=== PATIENT | male | born 1960 | race Caucasian/White ===

== ENCOUNTER 2019-05-07 09:21 | Emergency (ER) | payer OTHER, MEDICAID ==
[~2019-05-07] VITALS: Ht 182.9 cm; Wt 77.1 kg
--- NOTE | 2019-05-07 09:39 | NUR ---
PT DOES NOT REMEMBER HIS HOME MEDICATION DOSAGES AND NAMES.
--- NOTE | 2019-05-07 09:50 | NUR ---
Dr Polanco at the bedside for MSE.
[2019-05-07 10:15] LABS: BASOPHILS # (AUTO) 0.1 K/uL (0.0-8.0); BASOPHILS % (AUTO) 0.5 % (0.0-2.0); EOSINOPHILS # (AUTO) 0.1 K/uL (0.0-0.7); EOSINOPHILS % (AUTO) 1.2 % (0.0-7.0); HEMATOCRIT 34.1 % (36.7-47.1); HEMOGLOBIN 11.3 g/dL (12.5-16.3); LYMPHOCYTES # (AUTO) 1.6 K/uL (20.0-40.0); LYMPHOCYTES % (AUTO) 14.2 % (20.5-51.5); MEAN CORPUSCULAR HEMOGLOBIN 28.2 uug (23.8-33.4); MEAN CORPUSCULAR HGB CONC 33 g/dL (32.5-36.3); MEAN CORPUSCULAR VOLUME 84.9 fL (73.0-96.2); MONOCYTES % (AUTO) 8.5 % (0.0-11.0); NEUTROPHILS # (AUTO) 8.4 K/uL (1.8-8.9); NEUTROPHILS % (AUTO) 75.6 % (38.5-71.5); PLATELET COUNT (AUTO) 208 K/uL (152-348); RED BLOOD CELL COUNT(AUTO) 4.02 MIL/uL (4.06-5.63); WHITE BLOOD COUNT (AUTO) 11.2 K/uL (3.6-10.2)
[2019-05-07 10:22] LABS: CREATININE 1.5 mg/dL (0.6-1.3); POTASSIUM 4.2 mmol/L (3.5-5.1)
--- NOTE | 2019-05-07 10:24 | NUR ---
PT out of ER for CT.
[2019-05-07 10:27] LABS: BILIRUBIN,DIRECT 0.1 mg/dL (0.0-0.2); BILIRUBIN,TOTAL 0.7 mg/dL (0.2-1.0); TOTAL PROTEIN, SERUM 7.2 g/dL (6.4-8.2)
[2019-05-07] MEDS ORDERED: ASPIRIN 325 MG TABLET ONE (10:38)
[2019-05-07] MEDS ORDERED: ASPIRIN 325 MG TABLET PO ONE (10:45)
--- NOTE | 2019-05-07 10:45 | NUR ---
Minitor pads applied to pt's chest for monitoring/pacing per Md order.
--- NOTE | 2019-05-07 12:30 | NUR ---
Report provided to [facility] at [facility]. Pt is aware of transfer and signed the tx consent.
--- NOTE | 2019-05-07 13:12 | NUR ---
Report given to senior media director transport. Pt left ER via gurney.All belongings sent w/ Pt.
== END 2019-05-07 13:26 | disposition short-term general hospital (02) ==
LOC: ER 09:21
DX: I21.4 Non-ST elevation (NSTEMI) myocardial infarction (principal); E11.9 Type 2 diabetes mellitus without complications; Z90.49 Acquired absence of other specified parts of digestive tract; Z79.899 Other long term (current) drug therapy
CPT/HCPCS: 36415; 70030-TC; 70450; 71045; 84443; 85025; 85730; 93005; A4663